=== PATIENT | female | born 1940 | race Caucasian/White ===

== ENCOUNTER → 2016-06-07 | Outpatient (CLI) | payer MEDICARE, OTHER ==
--- NOTE | ~2016-06-07 | BD1 ---
[facility] A Service of [facility] RADIOLOGY TEXT RESULTS PATIENT: HEATHER WYNN LOCATION: [facility] : 38 UNIT #: [id number] AGE: [address]: Mukul York MD SEX: F ORDER DR: [id number] [facility] [address] [place], [place] [address] [id number] O MR#: [id number] Acc #: [id number] NAME: HEATHER YWNN : 1940 SEX: F STUDY DATE/TIME: 06/07/2016 12:31 UNIT: [facility] ROOM: STUDY DESCRIPTION: BD Dexa Bone Dens 1+ Site Attending Physician: Mukul York M.D. Ordering Physician: Mukul York M.D. Primary Care Physician: Mukul York M.D. MEDICAL IMAGING REPORT This report is preliminary unless electronic signature is present EXAM Bone density spine/hip, 06/07/2016. HISTORY Osteoporosis. On Caltrate. Postmenopausal. FINDINGS Bone mineral density scanning performed upper four lumbar vertebral segments and proximal left femur in 177-pound, 75-year-old, female. Comparison 06/06/2015. L1-L4: Bone mineral density is 0.923 g/cm2 for a T-score of 1.0 standard deviation below mean for a reference population of normal young individuals and Z-score 1.5 standard deviation above mean for age-matched population. Compared to 2015, there has been a 4.2% increase in bone mineral density in this region and this is felt to be statistically significant. PROXIMAL LEFT FEMUR: Total bone mineral density 0.802 g/cm2 for a T-score of 1.1 standard deviation below mean for a reference population of normal young individuals and Z-score 0.7 standard deviations above the mean for age-matched population. In the left femoral neck specifically, bone mineral density is 0.875 g/cm2 for a T-score of 0.4 standard deviation below mean for a reference population of normal young individuals and Z-score 1.8 standard deviations above the mean for an age-matched population. Using total bone mineral density in this region as trending value, there has been an 8.7% decrease in proximal left femoral bone mineral density compared to May 2014. This is felt to be statistically significant. IMPRESSION 1. Osteopenia in the proximal left femur. Patient felt to be at [facility] A Service of [facility] RADIOLOGY TEXT RESULTS PATIENT: HEATHER WYNN LOCATION: [facility] : 38 UNIT #: [id number] AGE: [address]: Mukul York MD SEX: F ORDER DR: increased risk for fracture. Treatment options may be considered. Continued surveillance is recommended. 2. Statistically significant increase in overall bone mineral density L1-L4 compared to 06/06/2014. Statistically significant decrease in bone mineral density in proximal left femur, compared to 06/06/2014. See complete trending data in body of report. Dictated by... Jeremias Blackburn M.D. THIS IS AN ELECTRONICALLY VERIFIED REPORT Jeremias Blackburn M.D. at 06/09/2016 5:52 PM VALARIE/lily TD: 06/07/2016 17:13 JOB #: [id number] MEDICAL IMAGING REPORT COPY
== END | disposition home or self-care (01) ==
LOC: CWCC 11:58
DX: M85.80 Other specified disorders of bone density and structure, unspecified site (principal); M85.88 Other specified disorders of bone density and structure, other site
CPT/HCPCS: 77080